=== PATIENT | male | born 1960 | race Caucasian/White ===

== ENCOUNTER 2017-04-21 10:21 | Observation (INO) | payer OTHER ==
[2017-04-21] MEDS ORDERED: ONDANSETRON 4 MG/2 ML VIAL IVP ONE (10:55)
[2017-04-21] MEDS ORDERED: fentaNYL 100 MCG/2 ML INJ IVP ONE (10:55)
[2017-04-21] MEDS ORDERED: NS 1,000 ML IV ONE ×2 (10:57→11:55)
[2017-04-21 11:08] LABS: % IMMATURE GRANULYOCYTES 0.3 % (0.0-1.1); ABSOLUTE IMMATURE GRANULOCYTES 0.05 10^3/uL (0.00-0.10); ADD DIFF? NO; ADD MORPH? NO; ADD SCAN? NO; ATYPICAL LYMPHOCYTE FLAG 0 (0-99); FRAGMENT RBC FLAG 0 (0-99); HEMOGLOBIN 15.3 g/dL (13.7-17.5); LEFT SHIFT FLG 30 (0-99); LIPEMIA HEMOLYSIS FLAG 90 (0-99); MEAN CELL HEMOGLOBIN 31.2 pg (27.9-34.1); MEAN CELL VOLUME 91.8 fL (81.5-99.8); PLATELET CLUMPS FLAG 0 (0-99); PLATELET COUNT 114 10^3/uL (150-400); RED CELL DISTRIBUTION WIDTH 12.1 % (11.5-15.2)
--- NOTE | 2017-04-21 11:14 | CPEKG ---
Heart Rate: 93 RR Interval: 645 P-R Interval: 144 QRSD Interval: 106 QT Interval: 348 QTC Interval: 433 P Zeeland: 5 QRS Zeeland: -29 T Wave Zeeland: 14 EKG Severity - NORMAL ECG - EKG Impression: SINUS RHYTHM Electronically Signed By: Ernesto Giles 21-Apr-2017 11:40:10
[2017-04-21 11:26] LABS: ANION GAP 17 mEq/L (8-16); CALCIUM 9.5 mg/dL (8.5-10.4); CARBON DIOXIDE 20 mEq/l (22-31); CHLORIDE 96 mEq/L (97-110); CREATININE 1.1 mg/dL (0.7-1.3); GLOMERULAR FILTRATION RATE > 60; GLUCOSE 209 mg/dL (70-100); POTASSIUM 4.3 mEq/L (3.5-5.2); SODIUM 133 mEq/L (134-144)
--- NOTE | 2017-04-21 11:33 | EDPHY ---
H & P Time Seen by Provider: 04/21/17 10:47 HPI/ROS: CHIEF COMPLAINT: "I feel sick" HISTORY OF PRESENT ILLNESS: Patient was initially seen at [facility] today and sent here because they felt he was too ill for clinic evaluation. Apparently he showed up with a bit of a headache and near syncope and some back pain was clinically dehydrated. Patient is a history of diabetes and a history of back pain. He tells me that he has had a headache and neck and back pain and pain in both thighs and hips for 3 days. It is worse with cough and feels severe. Not associated with fever chills or any recent fall injury or trauma. Pain does not radiate. Not associated with focal weakness or numbness or any change in mental status but generalized debility and overall feels very tired. REVIEW OF SYSTEMS: Eye: no change in vision ENT: no sore throat Cardiac: no chest pain or syncope Pulmonary: Mild dry cough but not short of breath Abdomen: no vomiting, diarrhea, abdominal pain, but decreased oral intake. No rectal pain Musculoskeletal: HPI Skin: no rash Neuro: HPI Constitutional: Symptomatic fever and chills : no urinary symptoms A comprehensive 10 point review of systems is otherwise negative aside from elements mentioned in the history of present illness. PAST MEDICAL HISTORY: Includes diabetes, per clinic chart atherosclerotic cysts and morbid obesity. Social history: Nonsmoker General Appearance: Alert and conversant, cooperative. Eyes: No scleral icterus. ENT, Mouth: Slightly dry mucous membranes, no pharyngeal erythema, no trismus. The normal tympanic membranes. Respiratory: Normal respiratory effort, breath sounds equal, lungs are clear to auscultation. Cardiovascular: Regular rate and rhythm. No murmur. Gastrointestinal: Abdomen is soft and non tender. Neurological: Alert and oriented x3. Normally conversant. Face symmetric, normal movement and sensation in all extremities. Toes downgoing bilaterally. Reflexes patellar symmetric but decreased at only 1+, no clonus. Skin: Warm and dry, no rashes. Musculoskeletal: Normal range of motion of all extremities joints including hips, normal range of motion of the neck without meningeal signs. Psychiatric: Not agitated. Emergency Department course/MDM: Discussed with [facility] provider Dr. Escamilla at 11:03 a.m. Fentanyl 100 mcg IV, Zofran 4 mg IV, normal saline IV 1 L. 1258: When I enter the room the patient is sleeping quietly easily awakened and feels a lot better. 1345: Normal head CT per [place]. 1402: Patient still having difficulty walking because of his back pain and because he gets dizzy and lightheaded when standing up. Plan for admission for symptom control. Most likely viral syndrome, clinically does not have meningitis. Patient was sent here from [facility] per his report to be admitted. Fever control, monitor cultures, supportive care. Smoking Status: Never smoked Constitutional: Initial Vital Signs Temperature (C) 36.9 C 04/21/17 10:28 Heart Rate 104 H 04/21/17 10:28 Respiratory Rate 16 04/21/17 10:28 Blood Pressure 142/76 H 04/21/17 10:28 O2 Sat (%) 94 04/21/17 10:28 O2 Delivery Mode Nasal Cannula O2 (L/minute) 2 Allergies/Adverse Reactions: glyburide Allergy (Verified 04/21/17 10:27) metformin Allergy (Verified 04/21/17 10:27) Home Medications: Medication Instructions Recorded Cephalexin [Keflex] 500 mg PO QID #28 cap 03/25/11 Sulfamethox/Trimeth 800/160 Mg 1 tab PO BID #14 tab 03/25/11 [Bactrim DS] metFORMIN HCL [Glucophage 500 mg 100 mg PO .ENTER W/MEAL 03/25/11 (*)] oxyCODONE/APAP 5/325 [Percocet 1 - 2 tab PO .Q 4 - 6 HRS PRN #20 03/25/11 5/325] tab oxyCODONE/APAP 5/325 [Percocet] 1 - 2 tab PO Q4-6PRN PRN #11 tab 05/14/13 Medical Decision Making - Diagnostics EKG Interpretation: 12-lead EKG interpreted by me; official reading is in trace master. My interpretation is sinus rhythm rate 93 no ischemic changes. Imaging Results: Imaging Impressions Chest X-Ray 04/21/17 10:56 Impression: 1. Hypoventilatory chest with no acute findings. 2. Stable cardiomegaly. Head CT 04/21/17 12:57 Impression: Normal brain. No acute intracranial hemorrhage or mass. Findings discussed with Emergency Department physician, Dr. Ernesto Giles on April 21, 2017 at 1347 hours. Differential Diagnosis: Differential considered including but not limited to viral syndrome, pneumonia, meningitis, epidural abscess, rhabdomyolysis. Consult/Admit Bed Type: [facility] - Data Points Laboratory Results: Laboratory Results 04/21/17 11:00 04/21/17 11:00 04/21/17 04/21/17 11:00 11:00 WBC 15.04 10^3/uL H 10^3/uL (3.80-9.50) RBC 4.90 10^6/uL 10^6/uL (4.40-6.38) Hgb 15.3 g/dL g/dL (13.7-17.5) Hct 45.0 % % (40.0-51.0) MCV 91.8 fL fL (81.5-99.8) MCH 31.2 pg pg (27.9-34.1) MCHC 34.0 g/dL g/dL (32.4-36.7) RDW 12.1 % % (11.5-15.2) Plt Count 114 10^3/uL L 10^3/uL (150-400) MPV 12.0 fL H fL (8.7-11.7) Neut % (Auto) 81.7 % H % (39.3-74.2) Lymph % (Auto) 8.0 % L % (15.0-45.0) Lewis % (Auto) 9.7 % % (4.5-13.0) Eos % (Auto) 0.0 % L % (0.6-7.6) Baso % (Auto) 0.3 % % (0.3-1.7) Nucleat RBC Rel Count 0.0 % % (0.0-0.2) Absolute Neuts (auto) 12.29 10^3/uL H 10^3/uL (1.70-6.50) Absolute Lymphs (auto) 1.20 10^3/uL 10^3/uL (1.00-3.00) Absolute Monos (auto) 1.46 10^3/uL H 10^3/uL (0.30-0.80) Absolute Eos (auto) 0.00 10^3/uL L 10^3/uL (0.03-0.40) Absolute Basos (auto) 0.04 10^3/uL 10^3/uL (0.02-0.10) Absolute Nucleated RBC 0.00 10^3/uL 10^3/uL (0-0.01) Immature Gran % 0.3 % % (0.0-1.1) Immature Gran # 0.05 10^3/uL 10^3/uL (0.00-0.10) Sodium 133 mEq/L L mEq/L (134-144) Potassium 4.3 mEq/L mEq/L (3.5-5.2) Chloride 96 mEq/L L mEq/L (97-110) Carbon Dioxide 20 mEq/l L mEq/l (22-31) Anion Gap 17 mEq/L H mEq/L (8-16) BUN 24 mg/dL H mg/dL (7-23) Creatinine 1.1 mg/dL mg/dL (0.7-1.3) Estimated GFR > 60 Glucose 209 mg/dL H mg/dL (70-100) Calcium 9.5 mg/dL mg/dL (8.5-10.4) Creatine Kinase 222 IU/L IU/L (0-224) Medications Given: Discontinued Medications Fentanyl (Sublimaze) 100 mcg IVP EDNOW ONE Stop: 04/21/17 10:56 Last Admin: 04/21/17 11:08 Dose: 100 mcg Sodium Chloride (Ns) 1,000 mls @ 0 mls/hr IV EDNOW ONE; Wide Open PRN Reason: Protocol Stop: 04/21/17 10:58 Last Admin: 04/21/17 11:08 Dose: 1,000 mls Sodium Chloride (Ns) 1,000 mls @ 0 mls/hr IV EDNOW ONE; Wide Open PRN Reason: Protocol Stop: 04/21/17 11:56 Last Admin: 04/21/17 12:12 Dose: 1,000 mls Ketorolac Tromethamine (Toradol) 30 mg IVP EDNOW ONE Stop: 04/21/17 11:56 Last Admin: 04/21/17 12:12 Dose: 30 mg Ondansetron HCl (Zofran) 4 mg IVP EDNOW ONE Stop: 04/21/17 10:56 Last Admin: 04/21/17 11:08 Dose: 4 mg Departure - Departure Disposition: [facility] Inpatient Acute Clinical Impression: Viral syndrome Back pain Qualifiers: Back pain location: low back pain Chronicity: acute Back pain laterality: midline Sciatica presence: unspecified whether sciatica present Qualified Code(s ): M54.5 - Low back pain Condition: Good
[2017-04-21] MEDS ORDERED: KETOROLAC 30 MG/1 ML SDV IVP ONE (11:55)
[2017-04-21] MEDS ORDERED: ONDANSETRON DISINTEGRATING 4 MG TAB PO PRN (14:44)
[2017-04-21] MEDS ORDERED: HYDROmorphONE/DILAUDID 1 MG/ML SYR IVP PRN (14:44)
[2017-04-21] MEDS ORDERED: ONDANSETRON 4 MG/2 ML VIAL IVP PRN (14:44)
[2017-04-21] MEDS ORDERED: ACETAMINOPHEN 325 MG TAB PO PRN (14:44)
[2017-04-21] MEDS ORDERED: NS 1,000 ML IV SCH (14:45)
[2017-04-21] MEDS ORDERED: D50W 25 GM/50 ML SYR IVP PRN (14:53)
--- NOTE | 2017-04-21 15:45 | GHP ---
[f rep st] HISTORY AND PHYSICAL DATE OF ADMISSION: 04/21/2017 CHIEF COMPLAINT: Headache. HISTORY OF PRESENT ILLNESS: 56-year-old man, here taking care of his parents, who is sent in from [facility] for [facility]. He has had 3 days of "feeling sick." This is associated with a heada paul, some myalgias, worsening back pain, fevers and chills at home. He has also been feeling weak, though he has not slept. His headache is made worse by his cough. It is associated with some neck pain, but no nuchal rigidity. He received fentanyl in the ED, which helped his symptoms. He also r eceived some normal saline, as well as Toradol which helped. PAST MEDICAL/SURGICAL HISTORY: 1. Diabetes mellitus. 2. History of a CVA. 3. Back procedure in 1971. MEDICATIONS: Please see medication reconciliation. ALLERGIES: Glyburide and metformin. SOCIAL HISTORY: He does not drink or smoke. He does have a history of smoking, but quit. FAMILY HISTORY: Diabetes. REVIEW OF SYSTEMS: A 10-point review of systems is conducted and is negative except per HPI. PHYSICAL EXAM: VITAL SIGNS: Blood pressure 111/66, heart rate 75, respiration rate 16, saturating 99% on 2 L, temperature is 36.9. GENERAL: The patient is a pleasant man, who appears uncomfortable lying in bed, occasionally holding his head. HEENT: Shows him to be normocephalic, atraumatic. C ARDIOVASCULAR: Regular rate and rhythm. No murmurs, rubs, or gallops. PULMONARY: Lungs clear to auscultation bilaterally. ABDOMEN: Soft, nontender, nondistended. NECK: Shows him to have no nuc temitope rigidity. SKIN: Shows no rash. : Shows no Coughlin. NEUROLOGIC: Shows him to be alert and o riented x3. He is moving all extremities. He does appear quite fatigued and is moving slowly. PSY CHIATRIC: Shows a normal mood and affect. LABS: White count is 15.04, platelets are 114. Sodium 133, bicarb 20, anion gap 17, BUN 24, creati nine 1.1. CK is 222. DATA: 1. I discussed this with Dr. Watts. Will admit to med/surg. 2. Head CT shows nothing acute. Normal brain. 3. Chest x-ray, which I personally reviewed and interpreted, shows cardiomegaly but nothing acute. 4. EKG, which I personally reviewed and interpreted, shows sinus rhythm. It is a normal EKG. IMPRESSION AND PLAN: A 56-year-old man, who is somewhat of a difficult historian, with 3 days of an illness. 1. Febrile illness with headache and myalgias: Agree with Dr. Watts, this is likely viral. He does have a neutrophilic leukocytosis, however. I will go ahead and order blood cultures, as well as re spiratory viral PCR. My suspicion for meningitis is very low, with no nuchal rigidity. Will not st art antibiotics at this point. We will provide him supportive care, including pain control for his headache, IV hydration. 2. Dehydration: His chemistries are abnormal, most consistent with dehydration. He has hyponatrem ia, mild anion gap acidosis. Will recheck a stat basic metabolic panel right now to assure that the se are improving with fluid resuscitation. 3. Will check LFTs. 4. Thrombocytopenia: This is somewhat chronic. Will recheck tomorrow. 5. Leukocytosis: As above. 6. History of a CVA: Will continue his home medications. 7. History of diabetes: Will provide him with low-dose sliding scale insulin, and follow his blood sugars. /[id number]/MODL
[2017-04-21] MEDS: INSULIN LISPRO 100 UNIT/ML SC SCH (18:04)
[2017-04-21] MEDS: TEMAZEPAM 15 MG CAP PO PRN (19:13)
[2017-04-21] MEDS: oxyCODONE IR 5 MG TAB PO PRN (19:14)
[2017-04-22] MEDS: oxyCODONE IR 5 MG TAB PO PRN ×2 (00:02→05:32)
[2017-04-22] MEDS: TEMAZEPAM 15 MG CAP PO PRN (00:02)
[2017-04-22 05:01] LABS: % IMMATURE GRANULYOCYTES 0.3 % (0.0-1.1); ABSOLUTE IMMATURE GRANULOCYTES 0.04 10^3/uL (0.00-0.10); ADD DIFF? NO; ADD MORPH? NO; ADD SCAN? YES; ATYPICAL LYMPHOCYTE FLAG 0 (0-99); FRAGMENT RBC FLAG 0 (0-99); HEMATOCRIT 40.8 % (40.0-51.0); HEMOGLOBIN 13.8 g/dL (13.7-17.5); LIPEMIA HEMOLYSIS FLAG 90 (0-99); MEAN CELL HEMOGLOBIN 31.4 pg (27.9-34.1); MEAN CELL HEMOGLOBIN CONCENTR. 33.8 g/dL (32.4-36.7); MEAN CELL VOLUME 92.7 fL (81.5-99.8); MEAN PLATELET VOLUME 12.1 fL (8.7-11.7); PLATELET CLUMPS FLAG 10 (0-99); PLATELET COUNT 99 10^3/uL (150-400); RED CELL DISTRIBUTION WIDTH 12.4 % (11.5-15.2)
[2017-04-22 05:03] LABS: LEFT SHIFT FLG 210 (0-99)
[2017-04-22 05:07] LABS: ALANINE AMINOTRANSFERASE 41 IU/L (21-72); ALBUMIN 3.3 g/dL (3.5-5.0); ALKALINE PHOSPHATASE 43 IU/L (38-126); ANION GAP 13 mEq/L (8-16); ASPARTATE AMINOTRANSFERASE 33 IU/L (17-59); BILIRUBIN,TOTAL 1.5 mg/dL (0.1-1.4); BILIRUBIN-CONJUGATED 0.4 mg/dL (0.0-0.5); BILIRUBIN-UNCONJUGATED 1.1 mg/dL (0.0-1.1); CALCIUM 8.2 mg/dL (8.5-10.4); CARBON DIOXIDE 18 mEq/l (22-31); CHLORIDE 97 mEq/L (97-110); CREATININE 1.2 mg/dL (0.7-1.3); GLOMERULAR FILTRATION RATE > 60; GLUCOSE 199 mg/dL (70-100); POTASSIUM 4.1 mEq/L (3.5-5.2); SODIUM 128 mEq/L (134-144); TOTAL PROTEIN 6.1 g/dL (6.3-8.2)
[2017-04-22 05:32] LABS: SCAN NEGATIVE
[2017-04-22 08:04] VITALS: BP 104/67; PULSE 85; RESP 14; TEMP 99.1; O2SAT 91
[2017-04-22] MEDS: INSULIN LISPRO 100 UNIT/ML SC SCH (08:44)
[2017-04-22] MEDS ORDERED: ALBUTEROL 60 PUFFS/8 GM MDI IH PRN (11:14)
--- NOTE | 2017-04-22 14:29 | GDS ---
[f rep st] DISCHARGE SUMMARY DISCHARGE DIAGNOSES: 1. Viral infection. 2. Headache. 3. Dehydration. 4. Hyponatremia. 5. Leukocytosis. 6. Thrombocytopenia. 7. History of diabetes. PHYSICAL EXAM: GENERAL: The patient is alert. VITAL SIGNS: Afebrile at 37.3, pulse is 85, respir atory rate is 14, blood pressure is 104/67, he is saturating 91% on room air. I have seen and evaluated the patient on the day of discharge. HOSPITAL COURSE: The patient is a 56-year-old male who presented to the emergency room with complai nts of being ill. He was evaluated and diagnosed with: 1. Likely viral illness. His symptoms have completely resolved prior to disposition. He is feelin g well. He is ambulating independently. He has no further complaints of malaise or headache. He i s eager to be discharged to attend [facility]. He will follow up in the outpatient setting. 2. Dehydration this has resolved with fluid resuscitation. 3. Hyponatremia. I have recommended he follow up in the outpatient setting with a primary care bello pearson, to have this further evaluated to assure that it corrects independently. He is understandin g of this. 4. Thrombocytopenia. This is [id number]. Again, he will follow up for laboratory evaluation s in the outpatient setting. 5. Leukocytosis. The etiology of this is unclear at the time of disposition, presumably secondary to viral illness. However, I have instructed him to have a laboratory panel, a CBC, as well as meta bolic panel performed in the next week at [facility] with his primary care provider. 6. History of diabetes. We have continued his previously prescribed medications. DISPOSITION: The patient is very eager to be discharged from the hospital. He will be discharged h ome independently. He does understand that his laboratory values are no within normal limits at the time of disposition and he is in agreement to follow up with his primary care provider in 1 week fo r CBC and metabolic panel for further stability and evaluation. PENDING STUDIES: There are none. DISCHARGE MEDICATIONS: I have not provided the patient any prescriptions at the time of disposition . /[id number]/MODL
[2017-04-22] MEDS ORDERED: metFORMIN HCL 500 MG TAB PO SCH (18:00)
[2017-04-22] MEDS ORDERED: NON-FORMULARY NEW DRUG (Metformin Hcl [Glucophage 1000 Mg] 1,000 MG) PO SCH (18:00)
[2017-04-23] MEDS ORDERED: ASPIRIN 81 MG CHEWABLE TAB PO SCH (09:00)
== END 2017-04-22 12:01 | disposition home or self-care (01) ==
LOC: INTOOBSV 14:36 → F3N 16:14
PROVIDERS: ADMIT Student in an Organized Health Care Education/Training Program; ATTEND Student in an Organized Health Care Education/Training Program
DX: B34.9 Viral infection, unspecified (principal); R51 Headache; E86.0 Dehydration; E87.1 Hypo-osmolality and hyponatremia; D72.829 Elevated white blood cell count, unspecified; D69.6 Thrombocytopenia, unspecified; M54.5 Low back pain; E11.9 Type 2 diabetes mellitus without complications; Z86.73 Personal history of transient ischemic attack (TIA), and cerebral infarction without residual deficits; Z79.84 Long term (current) use of oral hypoglycemic drugs
CPT/HCPCS: 96374; G0378; J1170; J1815; J1885; J2405; J3010